=== PATIENT | female | born 1940 | race Caucasian/White ===

== ENCOUNTER 2021-12-26 10:42 | Emergency (ER) | payer MEDICARE, OTHER, SELFPAY ==
[2021-12-26 10:46] VITALS: BP 124/66; PULSE 101; RESP 18; TEMP 36.8; O2SAT 97; BMI 26.3
--- NOTE | 2021-12-26 11:32 | ED_ITS ---
HPI - General Adult General Time Seen by Provider: 11:32 Date Seen: 12/26/21 Chief complaint: Weakness Stated complaint: Post dialysis weakness, knee pain Time Seen by Provider: 12/26/21 11:00 History of Present Illness HPI narrative: Lacey is an 81-year-old female past medical history includes end-stage renal disease on dialysis here in [place] Friday, hypertension, anxiety, SVT presents emerged department via private car with weakness and knee pain. Patient states that she received her dialysis today, he ended up finishing the run and she felt on well after they were finished, she feels lightheaded, and wobbly when she walks. Patient has also had bilateral knee pain and has worsened over the last 2-3 weeks, she has had imaging done of this. She takes extra-strength Tylenol for this, she denies any recent falls or injuries. She says that sometimes she gets dialysis may have to finish early since she does not feel well. This occurred Friday with a finished 20 minutes early, they ended up finishing today though. She denies any worsening chest pain or shortness of breath, she denies any palpitations, cough, orthopnea, lower extremity edema. She has been making urine, she denies any dysuria, amando turia or increased urinary frequency. Patient denies any dizziness but has lightheadedness from time to time, she has been eating and drinking normally, she drinks 4200 mils of water daily. She states she has no history of CAD or stroke. She denies any headache, nausea or vomiting. She denies any diarrhea or abdominal pain. Related Data Home Medications Medication Instructions Recorded Confirmed alprazolam 0.25 mg tablet mg 12/26/21 atorvastatin 40 mg tablet mg 12/26/21 furosemide 40 mg tablet mg 12/26/21 metoprolol tartrate 25 mg tablet mg 12/26/21 sevelamer carbonate 800 mg tablet mg 12/26/21 Previous Rx's Medication Instructions Recorded cefdinir 300 mg capsule 300 mg PO .Q48 #7 caps 12/26/21 Allergies Allergy/AdvReac Type Severity Reaction Status Date / Time No Known Drug Allergies Allergy Verified 12/26/21 10:51 Review of Systems Status of ROS: Reports: 10 or more systems reviewed and unremarkable except as noted in History and [facility] Social History Smoking Status: Never smoker Do you use any of these nicotine containing products: None Second hand tobacco smoke exposure: No How often do you have a drink containing alcohol: never How often do you have six or more drinks on one occasion: Never AUDIT-C Alcohol total score: 0 Non-prescribed substance use: denies use service: No Exam Narrative: Exam Narrative: General: NAD, non toxic in appearance. HEENT: Tympanic membranes within normal limits bilaterally, pupils equal round reactive to light Oropharynx is slightly dry Neck: Supple full range of motion, no JVD Lungs: Clear to auscultation bilaterally Heart: Normal sinus rhythm S1-S2 Abdomen: Soft nontender, bowel sounds present Muscle skeletal: She has full range of motion on extension and flexion of bilateral lower knees, there is no effusion or swelling, no redness Valgus and varus comparable bilaterally Neuro: Gait within normal limits, cranial nerves 2-12 grossly intact, alert awake and oriented x3 Const: Vital Signs, click to edit/add: Vital Signs - 24 hr 12/26/21 10:46 12/26/21 13:03 Temperature 98.3 F Pulse Rate [Right Pulse Oximeter] 101 H 93 Respiratory Rate 18 16 Blood Pressure [Ri ght Upper Arm] 124/66 166/74 H Pulse Oximetry 97 99 Oxygen Delivery Me thod Room Air Course Course Hospital Course: 11:15 AM: patient examined, vitals are stable. Workup will include IV peripheral, will obtain orthostatics, labs including CBC, CMP, magnesium, urinalysis and EKG. No further imaging in regards to her bilateral knees. Plan to hydrate with 250 mL bolus of normal saline, will have her ambulate. Patient was in agreement. Differential diagnosis includes cardiac arrhythmia, CVA, metabolic abnormality, kidney failure, urinary tract infection, sepsis, COVID, pneumonia, depression, anxiety as well as other etiologies. Reevaluation(s) Reevaluation #1: Patient was updated on her labs, EKG, urinalysis and imaging results. EKG did show a normal sinus rhythm, bpm 94, moderate voltage criteria for LVH, unchanged from previous. No acute ST changes. Per ED provider. CT head without IV contrast did not show any intracranial abnormality. Metabolic panel showed no changes with her electrolytes, she did have creatinine of 4.7 secondary to her ESRD. CBC did not show any leukocytosis, mildly elevated neutrophil count and percentage. Urinalysis did have many bacteria, wbc 5-10, 1+ leukocyte esterase, urine culture obtained, she was given 1 gram ceftriaxone. Based on her recent mental status changes, will be able to obtain a MR brain w/o to rule out any cva. If normal then consider discharge home. Time: 15:12 Reevaluation #2: patient update on her MR Brain results: IMPRESSION: 1. No evidence of acute ischemic infarction intracranial hemorrhage or mass. 2. Several small chronic cerebellar infarcts and chronic small vessel ischemic changes in cerebral white matter and trevor have progressed slightly since the prior MRI scan. Dictated by Dorian Miller MD @ 12/26/2021 3:27:56 PM Plan at this time would be to discharge, patient is doing well, prescription for Omnicef to be given every 48 hours, and on days of dialysis to take after the run, total of 7 tablets. Call was made to Daughter in Law Viviana, she was updated on her workup and plan, she will reach out to her [id number] tomorrow. Patient should follow up with primary care provider over the next 7- 10 days as needed, reasons to return given. All questions answered. Vital Signs Vital signs: Initial Vital Signs Temperature 98.3 F 12/26/21 10:46 Temperature Source Temporal Artery Scan 12/26/21 10:46 Pulse Rate 101 H 12/26/21 10:46 Pulse Rhythm 12/26/21 10:46 Respiratory Rate 18 12/26/21 10:46 Blood Pressure 124/66 12/26/21 10:46 Blood Pressure Mean 85 12/26/21 10:46 Blood Pressure Position Sitting 12/26/21 10:46 Pulse Oximetry 97 12/26/21 10:46 Oxygen Delivery Method 12/26/21 10:46 Vital Signs Temperature 98.3 F 12/26/21 10:46 Pulse Rate 101 H 12/26/21 10:46 Respiratory Rate 18 12/26/21 10:46 Blood Pressure 124/66 12/26/21 10:46 Pulse Oximetry 97 12/26/21 10:46 Oxygen Delivery Method 12/26/21 10:46 Temperature 98.3 F 12/26/21 10:46 Pulse Rate 93 12/26/21 13:03 Respiratory Rate 16 12/26/21 13:03 Blood Pressure 166/74 H 12/26/21 13:03 Pulse Oximetry 99 12/26/21 13:03 Oxygen Delivery Method 12/26/21 10:46 Medical Decision Making Lab Data Labs: Lab Results 12/26/21 12/26/21 12/26/21 Range/Units 11:30 11:55 11:55 WBC 8.54 (4.50-11.00) K/uL RBC 3.43 L (4.00-5.20) m/uL Hgb 11.4 L (12.0-16.0) gm/dL Hct 35.3 (33.0-51.0) % MCV 103 H (80-100) fL MCH 33 (26-34) pg MCHC 32 (32-36) gm/dL RDW Coeff of Thomas 14.2 (11.5-15.5) % Plt Count 191 (140-440) K/uL Neut % (Auto) 82.8 H (42.0-72.0) % Lymph % (Auto) 6.0 L (20-44) % [place] % (Auto) 7.8 (0.0-11.0) % Eos % (Auto) 2.1 (0.0-7.0) % Baso % (Auto) 0.7 (0.0-3.0) % Neut # (Auto) 7.10 H (1.7-7.0) K/uL Lymph # (Auto) 0.50 L (0.90-2.90) K/uL [place] # (Auto) 0.70 (0.00-0.90) K/UL Eos # (Auto) 0.18 (0.00-0.50) K/uL Baso # (Auto) 0.06 (0.00-0.30) K/uL Abs Immat Gran (auto) 0.05 (0.00-0.30) K/uL Sodium 137 (135-149) mmol/L Potassium 4.6 (3.6-5.1) mmol/L Chloride 96 (96-114) mmol/L Carbon Dioxide 28 (20-32) mmol/L BUN 29 (7-30) mg/dL Creatinine 4.7 H (0.5-1.5) mg/dL Estimated Creat Clear 9.28 Estimated GFR 9 ml/min Glucose 99 (60-115) mg/dL Calcium 9.7 (8.4-10.6) mg/dL Magnesium 1.6 (1.5-2.6) mg/dL Total Bilirubin 0.4 (0.1-1.5) mg/dL AST 25 (12-35) U/L ALT 19 (4-35) U/L Alkaline Phosphatase 77 (40-150) U/L Total Protein 7.9 (6.0-8.3) g/dL Albumin 4.7 (3.3-5.0) g/dL Urine Color Yellow (Yellow) Urine Appearance Clear (Clear) Urine pH 7.5 (5.0-8.5) Ur Specific [place] 1.020 (1.000-1.030) Urine Protein 3+ A (Negative) Urine Glucose (UA) Negative (Negative) Urine Ketones Negative (Negative) Urine Blood Trace-lysed A (Negative) Urine Nitrite Negative (Negative) Urine Bilirubin Negative (Negative) Urine Urobilinogen 0.2 (0.2-1.0) Ur Leukocyte Esterase 1+ A (Negative) Urine RBC 0-2 (0-2) Urine WBC 5-10 A (0-5) Ur Squamous Epith Cells Many A (None-Few) Amorphous Sediment Few A (None) Urine Bacteria Many A (None) Discharge Plan Discharge Clinical Impression: Urinary tract infection, Generalized weakness, ESRD on dialysis Patient Disposition: Home, Self-Care Instructions: Weakness (ED), Urinary Tract Infection in Older Adults (ED) Additional Instructions: To take Omnicef 300 mg every other day, but on days with dialysis take the Omnicef 300 mg after the run, take a total of 7 tablets. Follow up with primary care provider in the next 7-10 days as needed. Return if worsening symptoms. Activity Level: Activity as Tolerated Prescriptions: New cefdinir 300 mg capsule 300 mg PO .Q48 Qty: 7 0RF No Action furosemide 40 mg tablet atorvastatin 40 mg tablet alprazolam 0.25 mg tablet metoprolol tartrate 25 mg tablet sevelamer carbonate 800 mg tablet Stand Alone Forms: MyHealth Info Instructions
--- NOTE | 2021-12-26 11:43 | CRLHL7_ITS ---
For Patients: As a result of the Cures Act, medical imaging exams and procedure reports are released immediately into your electronic medical record. You may view this report before your referring provider. If you have questions, please contact your health care provider. INDICATION: CVA? TECHNIQUE: Head CT without contrast. COMPARISON: None. FINDINGS: CSF spaces: Within normal limits for age. Brain parenchyma and extra-axial spaces: There are nonspecific low attenuation white matter changes consistent with chronic microvascular disease. No sign of mass, hemorrhage, or midline shift. Calcification in the intracranial bilateral carotid arteries. Skull base and calvarium: Polyp or mucous retention cyst in the left maxillary sinus. The visualized paranasal sinuses and mastoid air cells are otherwise clear with no acute or significant findings. The visualized orbits are grossly unremarkable. No skull fractures. IMPRESSION: 1. No intracranial hemorrhage. 2. No evidence of other acute intracranial abnormality. Acute ischemic stroke cannot be excluded on noncontrast head CT. Please note that all CT scans at this facility use dose modulation, iterative reconstruction, and/or weight-based dosing when appropriate to reduce radiation dose to as low as reasonably achievable. Dictated by Wilfredo Maher MD @ 12/26/2021 12:13:50 PM (Electronically Signed)
[2021-12-26 11:49] LABS: Appearance Urine Clear (Clear); Bilirubin Urine Negative (Negative); Blood Urine Trace-lysed (Negative); Color Urine Yellow (Yellow); Glucose Urine Negative (Negative); Ketones Urine Negative (Negative); Leukocyte Esterase Urine 1+ (Negative); Nitrite Urine Negative (Negative); Protein Urine 3+ (Negative); Urobilinogen Urine 0.2 (0.2-1.0); pH Urine 7.5 (5.0-8.5)
[2021-12-26 12:03] LABS: Basophils Absolute Auto 0.06 K/uL (0.00-0.30); Basophils Percent Auto 0.7 % (0.0-3.0); Eosinophils Absolute Auto 0.18 K/uL (0.00-0.50); Eosinophils Percent Auto 2.1 % (0.0-7.0); Hematocrit 35.3 % (33.0-51.0); Hemoglobin* 11.4 gm/dL (12.0-16.0); Immature Granulocytes Abs Auto 0.05 K/uL (0.00-0.30); Mean Corpuscular HGB Conc 32 gm/dL (32-36); Mean Corpuscular Hemoglobin 33 pg (26-34); Mean Corpuscular Volume 103 fL (80-100); Monocytes Percent Auto 7.8 % (0.0-11.0); Neutrophils Percent Auto 82.8 % (42.0-72.0); Platelet Count* 191 K/uL (140-440); RDW Coefficient of Variation % 14.2 % (11.5-15.5); Red Blood Count 3.43 m/uL (4.00-5.20); White Blood Count* 8.54 K/uL (4.50-11.00)
[2021-12-26 12:10] LABS: Slide Review Reflex No
[2021-12-26 12:25] LABS: Albumin* 4.7 g/dL (3.3-5.0); Chloride* 96 mmol/L (96-114); Sodium* 137 mmol/L (135-149)
[2021-12-26 12:26] LABS: Potassium* 4.6 mmol/L (3.6-5.1)
[2021-12-26] MEDS: 0.9 % SODIUM CHLORIDE 250 ml 250 ML IV (12:27)
[2021-12-26 12:28] LABS: Alanine Aminotransferase* 19 U/L (4-35); Alkaline Phosphatase* 77 U/L (40-150); Aspartate Amino Transferase* 25 U/L (12-35); Bilirubin Total* 0.4 mg/dL (0.1-1.5); Blood Urea Nitrogen* 29 mg/dL (7-30); Carbon Dioxide* 28 mmol/L (20-32); Creatinine* 4.7 mg/dL (0.5-1.5); Est. Creatinine Clearance* 9.28; Estimated Glomerular Filt Rate 9 ml/min; Glucose* 99 mg/dL (60-115); Total Protein* 7.9 g/dL (6.0-8.3)
[2021-12-26 12:29] LABS: Calcium* 9.7 mg/dL (8.4-10.6); Magnesium* 1.6 mg/dL (1.5-2.6)
[2021-12-26 12:36] LABS: Bacteria Urine Many; RBC Urine 0-2 (0-2); Squamous Epithelial Cell Urine Many (None-Few)
[2021-12-26 12:37] LABS: Amorphous Sediment Urine Few
--- NOTE | 2021-12-26 13:00 | ED.NURSE ---
Pt up to the bathroom. Has removed her own IV and removed tele monitor. aware.
[2021-12-26 13:03] VITALS: BP 166/74; PULSE 93; RESP 16; O2SAT 99
--- NOTE | 2021-12-26 13:07 | CRLHL7_ITS ---
For Patients: As a result of the Cures Act, medical imaging exams and procedure reports are released immediately into your electronic medical record. You may view this report before your referring provider. If you have questions, please contact your health care provider. INDICATION: Dizziness. TECHNIQUE: Sagittal T1 axial FLAIR T2 and diffusion weighted images of the brain. COMPARISON: CT brain performed earlier today. Prior brain MRI dated 09/30/2019. FINDINGS: The ventricles normal in size and configuration. Mild prominence of subarachnoid spaces consistent with age-related volume loss. No evidence of acute ischemic infarction. No areas of diffusion restriction. No evidence of intracranial hemorrhage chronic small vessel ischemic changes within bilateral supratentorial white matter and trevor are again noted. There also chronic infarcts in the right cerebellar hemisphere. Findings have progressed somewhat since the prior scan. Retention cyst in the right maxillary sinus. The orbits, sella turcica and skullbase are otherwise unremarkable. IMPRESSION: 1. No evidence of acute ischemic infarction intracranial hemorrhage or mass. 2. Several small chronic cerebellar infarcts and chronic small vessel ischemic changes in cerebral white matter and trevor have progressed slightly since the prior MRI scan. Dictated by Dorian Miller MD @ 12/26/2021 3:27:56 PM (Electronically Signed)
[2021-12-26] MEDS: cefTRIAXone 1 GM in 0.9 % SODIUM CHLORIDE Mini-bag 100 ML IVPB (14:13)
[2021-12-26 16:53] LABS: SARS PCR* Negative SARS-CoV-2 (Negative)
== END 2021-12-26 16:16 | disposition home or self-care (01) ==
PROVIDERS: Emergency Provider Student in an Organized Health Care Education/Training Program
DX: R53.1 Weakness (principal); N39.0 Urinary tract infection, site not specified; N18.6 End stage renal disease; Z99.2 Dependence on renal dialysis
CPT/HCPCS: 36415; 70450; 70551; 80053; 81003; 81015; 83735; 85025; 87040; 87086; 87635; 93005; 96365; 99283; 99284; 99285; J0696; J7050

== ENCOUNTER 2021-12-27 18:33 | Outpatient (CLI) | payer MEDICARE, OTHER, SELFPAY | END 2021-12-27 18:34 | disposition home or self-care (01) | PROVIDERS: Visit Provider Family Medicine | DX: R42 Dizziness and giddiness (principal); R53.1 Weakness | CPT/HCPCS: A0425; A0427 ==

== ENCOUNTER 2021-12-27 18:54 | Emergency (ER) | payer MEDICARE, OTHER, SELFPAY ==
[2021-12-27] VITALS (15 sets, daily range): BP systolic 104–181; BP diastolic 52–81; PULSE 94–150; RESP 18; TEMP 36.4; O2SAT 90–96; BMI 22.8
--- NOTE | 2021-12-27 | CRLHL7_ITS ---
For Patients: As a result of the Century Cures Act, medical imaging exams and procedure reports are released immediately into your electronic medical record. You may view this report before your referring provider. If you have questions, please contact your health care provider. DATE: 12/27/2021. CLINICAL HISTORY: Acute neurological deficit. TECHNIQUE: Standard helical CT image acquisition through the head and neck was performed after intravenous contrast bolus enhancement. Multiplanar reconstructed images were performed and interpreted. COMPARISON: None available. FINDINGS: The origins of the great vessels from the aortic arch are patent. The origins of the right and left vertebral arteries are patent. The common carotid arteries are patent. No significant luminal stenoses of the proximal internal carotid arteries by NASCET criteria. The more distal cervical segments of the internal carotid arteries are patent. The cervical segments of the vertebral arteries are patent. No intracranial proximal large vessel occlusion or flow-limiting luminal stenosis. No evidence of cerebral aneurysm or findings to suggest an arteriovenous shunting lesion. IMPRESSION: 1. No intracranial proximal large vessel occlusion or flow-limiting luminal stenosis. 2. Patent cervical arterial vasculature without hemodynamically significant luminal stenosis. Please note that all CT scans at this facility use dose modulation, iterative reconstruction, and/or weight-based dosing when appropriate to reduce radiation dose to as low as reasonably achievable. Dictated by Demetris Alonso MD @ 12/28/2021 9:40:48 AM (Electronically Signed)
--- NOTE | 2021-12-27 | CRLHL7_ITS ---
For Patients: As a result of the Century Cures Act, medical imaging exams and procedure reports are released immediately into your electronic medical record. You may view this report before your referring provider. If you have questions, please contact your health care provider. INDICATION: Stroke. TECHNIQUE: Head CT without contrast. COMPARISON: December 26, 2021. FINDINGS: CSF spaces: Within normal limits for age. Brain parenchyma and extra-axial spaces: There are nonspecific low attenuation white matter changes consistent with chronic microvascular disease. No sign of mass, hemorrhage, or midline shift. Skull base and calvarium: The visualized paranasal sinuses and mastoid air cells demonstrate no acute or significant findings. The visualized orbits are grossly unremarkable. No skull fractures. IMPRESSION: No acute findings and no significant changes from the prior exam. No sign of acute ischemia or intracranial hemorrhage. Please note that all CT scans at this facility use dose modulation, iterative reconstruction, and/or weight-based dosing when appropriate to reduce radiation dose to as low as reasonably achievable. Dictated by Flash Magaña MD @ 12/27/2021 7:28:58 PM (Electronically Signed)
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
[2021-12-27] MEDS: 0.9 % SODIUM CHLORIDE 250 ml 250 ML IV (19:15)
[2021-12-27 19:25] LABS: Basophils Absolute Auto 0.05 K/uL (0.00-0.30); Basophils Percent Auto 0.6 % (0.0-3.0); Eosinophils Absolute Auto 0.16 K/uL (0.00-0.50); Eosinophils Percent Auto 1.9 % (0.0-7.0); Hematocrit 33.5 % (33.0-51.0); Hemoglobin* 10.7 gm/dL (12.0-16.0); Immature Granulocytes Abs Auto 0.05 K/uL (0.00-0.30); Mean Corpuscular HGB Conc 32 gm/dL (32-36); Mean Corpuscular Hemoglobin 33 pg (26-34); Mean Corpuscular Volume 104 fL (80-100); Monocytes Percent Auto 9.4 % (0.0-11.0); Neutrophils Percent Auto 75.5 % (42.0-72.0); Platelet Count* 228 K/uL (140-440); RDW Coefficient of Variation % 14.8 % (11.5-15.5); Red Blood Count 3.23 m/uL (4.00-5.20); White Blood Count* 8.51 K/uL (4.50-11.00)
[2021-12-27 19:26] LABS: Slide Review Reflex No
[2021-12-27] MEDS: ADENOSINE 6 MG/2ML INJ IVP (19:32)
[2021-12-27 19:38] LABS: Chloride* 95 mmol/L (96-114); Potassium* 5.3 mmol/L (3.6-5.1); Sodium* 137 mmol/L (135-149)
[2021-12-27 19:40] LABS: INR 1.05 (0.91-1.10); Prothrombin Time 14.1 Seconds
[2021-12-27 19:41] LABS: Blood Urea Nitrogen* 54 mg/dL (7-30); Carbon Dioxide* 23 mmol/L (20-32); Creatinine* 8.1 mg/dL (0.5-1.5); Est. Creatinine Clearance* 4.98; Estimated Glomerular Filt Rate 5 ml/min; Glucose* 161 mg/dL (60-115)
[2021-12-27 19:42] LABS: Calcium* 9.7 mg/dL (8.4-10.6)
--- NOTE | 2021-12-27 19:43 | CRLHL7_ITS ---
For Patients: As a result of the Century Cures Act, medical imaging exams and procedure reports are released immediately into your electronic medical record. You may view this report before your referring provider. If you have questions, please contact your health care provider. INDICATION: Supraventricular tachycardia. Shortness of breath. TECHNIQUE: Chest 1 views. COMPARISON: None. FINDINGS: Cardiovascular and mediastinum: Heart size and vasculature are normal in caliber and appearance. Lungs and pleural spaces: Lungs are clear. No sign of infiltrate or mass. No sign of pleural effusion. No pneumothorax. Bones and soft tissues: No significant findings. IMPRESSION: No acute or significant findings. Dictated by Flash Magaña MD @ 12/27/2021 8:11:15 PM (Electronically Signed)
[2021-12-27] MEDS: ONDANSETRON 2 MG/ML inj 4 MG IVP (22:27)
[2021-12-28] VITALS: PULSE 81; RESP 16; O2SAT 95
--- NOTE | 2021-12-28 00:09 | ED.NURSE ---
pt moved to room 5.
[2021-12-28 01:00] VITALS: BP 166/68; PULSE 84; RESP 16; O2SAT 95
[2021-12-28 02:00] VITALS: BP 172/67; PULSE 82; RESP 16; O2SAT 96
[2021-12-28] MEDS: METOPROLOL TARTRATE 25 MG TABLET PO (02:00)
[2021-12-28 02:29] LABS: Magnesium* 1.9 mg/dL (1.5-2.6)
[2021-12-28 03:00] VITALS: BP 153/76; PULSE 76; RESP 16; O2SAT 95
[2021-12-28 04:00] VITALS: BP 151/72; PULSE 77; RESP 16; O2SAT 95
[2021-12-28 05:00] VITALS: BP 150/68; PULSE 74; RESP 16; O2SAT 95
--- NOTE | 2021-12-28 05:00 | ED.NURSE ---
At bedside with MD Martin for education on importance of returning to ED after dialysis.
== END 2021-12-28 05:46 | disposition home or self-care (01) ==
PROVIDERS: Student in an Organized Health Care Education/Training Program; Emergency Provider Family Medicine
DX: R47.89 Other speech disturbances (principal); N18.6 End stage renal disease; Z99.2 Dependence on renal dialysis
CPT/HCPCS: 36415; 70450; 70496; 70498; 71045; 80048; 83735; 85025; 85610; 87635; 93005; 96374; 96375; 99285; A9270; J0153; J2405; J7050; Q9967

== ENCOUNTER 2021-12-28 11:07 | Observation (INO) | payer MEDICARE, OTHER, SELFPAY ==
[2021-12-28] VITALS (8 sets, daily range): BP systolic 124–148; BP diastolic 64–89; PULSE 80–95; RESP 16–20; TEMP 36.3–37.2; O2SAT 93–99; BMI 23.1
--- NOTE | 2021-12-28 11:42 | ED.GENADULT ---
HPI - General Adult General Time Seen by Provider: 11:42 Date Seen: 12/28/21 Chief complaint: Neuro Symptoms/Altered Deficit Stated complaint: Needs tests Time Seen by Provider: 12/28/21 11:13 Source: patient, RN notes reviewed and old records reviewed Mode of arrival: ambulatory Limitations: no limitations History of Present Illness HPI narrative: Patient returns after dialysis for further workup and hospitalization for TIA. This patient has a complex history including end-stage renal disease on dialysis with underlying history of glomerulonephritis. She has been evaluated a few times in our ER now. Her most recent visit was yesterday on 12/27/2021. She ended up in our hospital overnight as there was no placement for her. She has had a head CT and a CTA of. She has had an MRI reportedly that was negative. He ended up in our ER overnight, went to dialysis and has returned. Neurology was consulted via phone overnight and therefore informed of the negative CT/MRI on December [address] CTA on December 27. She also had SVT on December 27 which resolved with adenosine. She did have a witnessed 30-45 second episode of difficulty with speech and word-finding here in the ER overnight. Her initial NIH was 1 in subsequently resolved back to 0. Neurology suggested TIA workup, with inability to transfer to [facility] dialysis she was held overnight in the ER and discharge to dialysis this morning. She returns for further evaluation. She was given an aspirin 81 mg a overnight. She has had no episodes of neurologic change since discharge. No speech difficulties. Dialysis was uneventful, she is feeling at baseline. She does states she feels a bit wobbly. Her last COVID test was on December 26, will repeat today. There was a question of a UTI on the , cefdinir was started, urine culture is growing a contaminant. She had been advised to stop the cefdinir overnight. Nursing staff reported to me that there have been a few things with her behavior that they are wondering if there is some behavior issues or possibly dementia. She stated that she urinated and that her urine never looks yellow. There was absolutely no change in color in the urine in the toilet. Overnight she was also noted to be scrolling on her phone but she had upside down. She also argued with nursing staff for quite some time on her admission today that her weight was 168 kilos. Nursing staff tried to explain to her that this would be lb for her. She argued for quite a bit until she finally understood that indeed the 168 is lb. Related Data Home Medications Medication Instructions Recorded Confirmed alprazolam 0.25 mg tablet mg 12/26/21 atorvastatin 40 mg tablet mg 12/26/21 furosemide 40 mg tablet mg 12/26/21 metoprolol tartrate 25 mg tablet mg 12/26/21 sevelamer carbonate 800 mg tablet mg 12/26/21 Previous Rx's Medication Instructions Recorded cefdinir 300 mg capsule 300 mg PO .Q48 #7 caps 12/26/21 Allergies Allergy/AdvReac Type Severity Reaction Status Date / Time No Known Drug Allergies Allergy Verified 12/26/21 10:51 Review of Systems Status of ROS: Reports: 10 or more systems reviewed and unremarkable except as noted in History and below [facility] Social History Smoking Status: Never smoker Do you use any of these nicotine containing products: None Second hand tobacco smoke exposure: No How often do you have a drink containing alcohol: never How often do you have six or more drinks on one occasion: Never AUDIT-C Alcohol total score: 0 Non-prescribed substance use: denies use service: No Exam Const: Vital Signs, click to edit/add: Vital Signs - 24 hr 12/28/21 11:23 12/28/21 12:31 12/28/21 13:01 Temperature 99.0 F Pulse Rate 93 Pulse Rate [Right Pulse Oximeter] 91 Respiratory Rate 18 Blood Pressure 124/74 134/74 Blood Pressure [Ri ght Upper Arm] 131/64 Pulse Oximetry 96 94 Oxygen Delivery Me thod Room Air Documenting provider has reviewed patient's vital signs: yes Common normals: no apparent distress, average body habitus, oriented x3, no limitations, healthy appearing and alert General appearance: cooperative and comfortable HENMT: Common normals: normocephalic, head/scalp atraumatic, hearing grossly normal bilaterally, external ears normal, external nose normal, nasal mucous membranes and turbinates normal, moist oral mucous membranes, oropharynx normal, dentition normal and gingiva normal Head and scalp: normocephalic and atraumatic Nose: external nose normal and nasal mucous membranes and turbinates normal External ear: external ears normal Eye: Common normals: PERRL, EOMs intact bilaterally, conjunctivae normal and no scleral icterus Conjunctiva: conjunctiva(e) normal Pupil: PERRL Neck & C-Spine: Common normals: full ROM, no lymphadenopathy, supple, no meningeal signs, no JVD and thyroid normal Thyroid: thyroid normal Resp: Common normals: normal respiratory effort, no retractions, no use of accessory muscles and clear to auscultation bilaterally Auscultation: clear to auscultation bilaterally Cardio: Common normals: no JVD, regular rate, regular rhythm, S1 normal heart sound, S2 normal heart sound, no gallops, no clicks, no murmurs, no rub and peripheral pulses 2+ throughout Rate: regular rate Rhythm: regular rhythm Heart sounds: S1 normal and S2 normal Peripheral pulses: pulses 2+ throughout GI: Common normals: Normal to inspection, nondistended, normoactive bowel sounds present, soft to palpation, non-tender, no hepatosplenomegaly, no masses and no bruits Palpation: soft and no hepatosplenomegaly Neuro: Bob Coma Scale: document GCS findings Bob coma scale eye opening: Spontaneous (4) Bob coma scale verbal response: Orientated (5) [place] coma scale motor response: Obey commands (6) [place] coma scale total score: 15 Common normals: oriented x3, CN's II-XII intact bilaterally, moves all extremities, no focal motor deficits and no sensory deficits noted Sensorium/orientation: alert Meningeal signs: no meningeal signs Speech: speech normal Course Course Hospital Course: We will place her on cardiac monitoring. Will update labs including COVID screening. I have talked to our hospitalist already briefly regarding this patient. When he is done doing the discharge he will come down to see me and discuss this patient further. She will not require dialysis until Friday. I do wonder if she needs some cognitive testing. It certainly is possible that the have been TIAs and she is high risk. I will have nursing staff see if there are any possible med surg beds where there is dialysis. She does not need repeat neuro imaging at this time. Vital Signs Vital signs: Initial Vital Signs Temperature 99.0 F 12/28/21 11:23 Temperature Source Temporal Artery Scan 12/28/21 11:23 Pulse Rate 91 12/28/21 11:23 Respiratory Rate 18 12/28/21 11:23 Blood Pressure 131/64 12/28/21 11:23 Blood Pressure Mean 86 12/28/21 11:23 Blood Pressure Position Supine 12/28/21 11:23 Pulse Oximetry 96 12/28/21 11:23 Oxygen Delivery Method 12/28/21 11:23 Vital Signs Temperature 99.0 F 12/28/21 11:23 Pulse Rate 91 12/28/21 11:23 Respiratory Rate 18 12/28/21 11:23 Blood Pressure 131/64 12/28/21 11:23 Pulse Oximetry 96 12/28/21 11:23 Oxygen Delivery Method 12/28/21 11:23 Temperature 99.0 F 12/28/21 11:23 Pulse Rate 93 12/28/21 12:31 Respiratory Rate 18 12/28/21 11:23 Blood Pressure 134/74 12/28/21 13:01 Pulse Oximetry 94 12/28/21 12:31 Oxygen Delivery Method 12/28/21 11:23 Medical Decision Making Lab Data Lab results reviewed: Yes I reviewed the patient's lab results Labs: Lab Results 12/28/21 12/28/21 12/28/21 Range/Units 11:43 12:05 12:05 WBC (4.50-11.00) K/uL RBC (4.00-5.20) m/uL Hgb (12.0-16.0) gm/dL Hct (33.0-51.0) % MCV (80-100) fL MCH (26-34) pg MCHC (32-36) gm/dL RDW Coeff of Thomas (11.5-15.5) % Plt Count (140-440) K/uL Neut % (Auto) (42.0-72.0) % Lymph % (Auto) (20-44) % [place] % (Auto) (0.0-11.0) % Eos % (Auto) (0.0-7.0) % Baso % (Auto) (0.0-3.0) % Neut # (Auto) (1.7-7.0) K/uL Lymph # (Auto) (0.90-2.90) K/uL [place] # (Auto) (0.00-0.90) K/UL Eos # (Auto) (0.00-0.50) K/uL Baso # (Auto) (0.00-0.30) K/uL Abs Immat Gran (auto) (0.00-0.30) K/uL Sodium 136 (135-149) mmol/L Potassium 4.2 (3.6-5.1) mmol/L Chloride 95 L (96-114) mmol/L Carbon Dioxide 29 (20-32) mmol/L BUN 24 (7-30) mg/dL Creatinine 4.3 H (0.5-1.5) mg/dL Estimated Creat Clear 10.15 Estimated GFR 10 ml/min Glucose 108 (60-115) mg/dL Calcium 8.9 (8.4-10.6) mg/dL Total Bilirubin 0.4 (0.1-1.5) mg/dL AST 29 (12-35) U/L ALT 18 (4-35) U/L Alkaline Phosphatase 70 (40-150) U/L Total Protein 7.5 (6.0-8.3) g/dL Albumin 4.5 (3.3-5.0) g/dL TSH 1.000 (0.270-4.200) uIU/mL SARS-CoV-2 (PCR) Negative SARS-CoV-2 (Negative) 12/28/21 Range/Units 12:06 WBC 7.98 (4.50-11.00) K/uL RBC 3.12 L (4.00-5.20) m/uL Hgb 10.4 L (12.0-16.0) gm/dL Hct 32.3 L (33.0-51.0) % MCV 104 H (80-100) fL MCH 33 (26-34) pg MCHC 32 (32-36) gm/dL RDW Coeff of Thomas 14.6 (11.5-15.5) % Plt Count 173 (140-440) K/uL Neut % (Auto) 78.9 H (42.0-72.0) % Lymph % (Auto) 9.4 L (20-44) % [place] % (Auto) 8.6 (0.0-11.0) % Eos % (Auto) 1.5 (0.0-7.0) % Baso % (Auto) 0.5 (0.0-3.0) % Neut # (Auto) 6.30 (1.7-7.0) K/uL Lymph # (Auto) 0.80 L (0.90-2.90) K/uL [place] # (Auto) 0.70 (0.00-0.90) K/UL Eos # (Auto) 0.12 (0.00-0.50) K/uL Baso # (Auto) 0.04 (0.00-0.30) K/uL Abs Immat Gran (auto) 0.09 (0.00-0.30) K/uL Sodium (135-149) mmol/L Potassium (3.6-5.1) mmol/L Chloride (96-114) mmol/L Carbon Dioxide (20-32) mmol/L BUN (7-30) mg/dL Creatinine (0.5-1.5) mg/dL Estimated Creat Clear Estimated GFR ml/min Glucose (60-115) mg/dL Calcium (8.4-10.6) mg/dL Total Bilirubin (0.1-1.5) mg/dL AST (12-35) U/L ALT (4-35) U/L Alkaline Phosphatase (40-150) U/L Total Protein (6.0-8.3) g/dL Albumin (3.3-5.0) g/dL TSH (0.270-4.200) uIU/mL SARS-CoV-2 (PCR) (Negative) Critical Care Time Critical Care Time Critical Care Time: No Discharge Plan Discharge Clinical Impression: Speech abnormality, End stage renal disease on dialysis
[2021-12-28 12:12] LABS: Basophils Absolute Auto 0.04 K/uL (0.00-0.30); Basophils Percent Auto 0.5 % (0.0-3.0); Eosinophils Absolute Auto 0.12 K/uL (0.00-0.50); Eosinophils Percent Auto 1.5 % (0.0-7.0); Hematocrit 32.3 % (33.0-51.0); Hemoglobin* 10.4 gm/dL (12.0-16.0); Immature Granulocytes Abs Auto 0.09 K/uL (0.00-0.30); Lymphocytes Percent Auto 9.4 % (20-44); Mean Corpuscular HGB Conc 32 gm/dL (32-36); Mean Corpuscular Hemoglobin 33 pg (26-34); Mean Corpuscular Volume 104 fL (80-100); Monocytes Percent Auto 8.6 % (0.0-11.0); Neutrophils Percent Auto 78.9 % (42.0-72.0); Platelet Count* 173 K/uL (140-440); RDW Coefficient of Variation % 14.6 % (11.5-15.5); Red Blood Count 3.12 m/uL (4.00-5.20); White Blood Count* 7.98 K/uL (4.50-11.00)
[2021-12-28 12:19] LABS: Slide Review Reflex No
[2021-12-28 12:25] LABS: Albumin* 4.5 g/dL (3.3-5.0); Chloride* 95 mmol/L (96-114)
[2021-12-28 12:26] LABS: Potassium* 4.2 mmol/L (3.6-5.1); Sodium* 136 mmol/L (135-149)
[2021-12-28 12:28] LABS: Alkaline Phosphatase* 70 U/L (40-150); Aspartate Amino Transferase* 29 U/L (12-35); Bilirubin Total* 0.4 mg/dL (0.1-1.5); Blood Urea Nitrogen* 24 mg/dL (7-30); Carbon Dioxide* 29 mmol/L (20-32); Creatinine* 4.3 mg/dL (0.5-1.5); Est. Creatinine Clearance* 10.15; Estimated Glomerular Filt Rate 10 ml/min; Total Protein* 7.5 g/dL (6.0-8.3)
[2021-12-28 12:29] LABS: Alanine Aminotransferase* 18 U/L (4-35); Calcium* 8.9 mg/dL (8.4-10.6); Glucose* 108 mg/dL (60-115)
[2021-12-28 13:07] LABS: SARS PCR* Negative SARS-CoV-2 (Negative)
--- NOTE | 2021-12-28 13:08 | ED.NURSE ---
Report given to ARNOLD Velazquez. Pt will go to Rm 256 in 10-15 min per M/S request. VSS at this time.
--- NOTE | 2021-12-28 14:36 | PC.NURSE ---
End of Shift/admission note: Patient arrived to the floor around 1330. When she arrived she was met by the hydroelectric plant technician to do and echo cardiogram so did not start her admission process right away. Patient does appear alert and orientated. But does struggle at times to find her words. Will continue to monitor until next shift.
--- NOTE | 2021-12-28 15:53 | P.IMHP_ITS ---
Hospitalist- H&P: ALIA History of Present Illness Date Seen: 12/28/21 Chief complaint: Needs tests Narrative: Lacey Jackson is a 81 year old female who presents with a 2 day history of neurologic symptoms. 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 She is on dialysis for this. Two days ago she had dialysis and did not feel right afterwards. She was referred to the emergency department because it was suspected she had a urinary tract infection. She did not have any urinary symptoms or fever or back pain. She reported no other symptoms of illness other than just not feeling well. In the emergency room she had evaluation including an MRI of the brain which showed no acute abnormality but small-vessel ischemic changes and prior cerebellar strokes. Urinalysis was obtained and she was started on cefdinir. She did not actually start the cefd inir. She went home and and continued to have a sense of malaise. She then the next day developed a sense of dizziness. She describes the dizziness as both unsteadiness on her feet as well as some lightheadedness when she stood up. She did not pass out or fall down. She has been able to eat and drink without nausea and vomiting she has not had any diarrhea she has not any urinary symptoms. She has a chronic cough which has not changed she has not any shortness of breath or respiratory illness symptoms. She was evaluated in the emergency department and underwent head CT was CTA. This showed no acute abnormality and no significant extra cranial or intracranial stenosis. She continues to report a sense of imbalance/dizziness. There was also some question of whether she is having some word-finding difficulties. This was observed in the emergency department. She is also having some trouble describing recent events to me. She is occasionally confused about her medical history and recent events and dates of events. Review of Systems Narrative: She reports otherwise feeling well. She did have a headache on Friday but that has resolved. She has not had any head trauma. No fever. No focal weakness, numbness or tingling. No visual disturbance. No sore throat. No new cough or cold. No chest pain. No abdominal pain, nausea, vomiting. She has been eating normally. No diarrhea or. She does have chronic constipation for which she uses MiraLax as needed. No blood in her stool or melena. No urinary frequency urgency dysuria. No flank pain. No extremity edema. No bleeding or clotting problems. She is wearing a cam walker type boot on her right leg because she tells me she is having some right heel pain. PFSH PFSH Family History Mother CHF (congestive heart failure) Father Pancreatic cancer Social History Highest level of school completed/degree received: Bachelor's degree Smoking Status: Never smoker Do you use any of these nicotine containing products: None Second hand tobacco smoke exposure: No How often do you have a drink containing alcohol: never How often do you have six or more drinks on one occasion: Never AUDIT-C Alcohol total score: 0 Non-prescribed substance use: denies use Caffeine: No service: No Meds Home Medications and Allergies Home Medications Medication Instructions Recorded Confirmed Type alprazolam 0.25 mg tablet 0.25 mg PO DAILY PRN 12/26/21 12/28/21 History atorvastatin 40 mg tablet 40 mg PO .At bedtime 12/26/21 12/28/21 History furosemide 40 mg tablet 40 mg PO DAILY 12/26/21 12/28/21 History metoprolol tartrate 25 mg tablet 25 mg PO BID 12/26/21 12/28/21 History sevelamer carbonate 800 mg tablet 3,200 mg PO TIDWM 12/26/21 12/28/21 History venlafaxine 150 mg 150 mg PO DAILY 12/28/21 12/28/21 History capsule,extended release 24 hr vitamin B comp no.3-folic acid 1 1 tab PO DAILY 12/28/21 12/28/21 History mg-vit C 60 mg-biotin 300 mcg tablet ([employer]) Allergies Allergy/AdvReac Type Severity Reaction Status Date / Time No Known Drug Allergies Allergy Verified 12/26/21 10:51 Exam Narrative: Exam Narrative: She is alert and appears in no distress. Speech is normal. She speech is fluent. She does struggle to recall significant amounts of recent events. She is initially disoriented to day but then is able to self correct. She is unable to recall her medications and unable to find her medication list in her phone. She has no facial asymmetry. Eyes are normal. Extraocular movements are full. Visual flanagan are intact. Pupils are equal round reactive to light. Oropharynx is normal. Tongue is midline. She has intact sensation in her face. Neck is supple without mass or adenopathy. Respirations are clear to auscultation. Cardiovascular: S1, S2, regular rate and rhythm. No murmur gallop or rub. Abdomen: Bowel sounds active. Abdomen is soft without tenderness or mass. External genitalia normal. Extremities are normal. Boot is removed from her right extremity to reveal a normal appearing foot. She does have mild tenderness with palpation over the plantar surface of the heel as well as the area of the insertion of the Achilles on the posterior heel. There is no redness or swelling in this area. She has normal motion in her ankle without significant discomfort. No swelling in her calf. She has intact pedal pulses. No edema. She moves all 4 extremities equally with equal strength. [id number] is accurate. No tremor. No dysmetria. Const: Vital Signs, click to edit/add: Vital Signs - 24 hr 12/28/21 11:23 12/28/21 12:31 12/28/21 13:01 Temperature 99.0 F Pulse Rate 93 Pulse Rate [Right Pulse Oximeter] 91 Pulse Rate [Right Radial] Respiratory Rate 18 Blood Pressure 124/74 134/74 Blood Pressure [Ri ght Arm] Blood Pressure [Ri ght Upper Arm] 131/64 Pulse Oximetry 96 94 Oxygen Delivery Me thod Room Air 12/28/21 14:04 Temperature 99.0 F Pulse Rate Pulse Rate [Right Pulse Oximeter] Pulse Rate [Right Radial] 86 Respiratory Rate 20 Blood Pressure Blood Pressure [Ri ght Arm] 146/69 H Blood Pressure [Ri ght Upper Arm] Pulse Oximetry 99 Oxygen Delivery Me thod Room Air Documenting provider has reviewed patient's vital signs: yes Hospitalist - H&P: Result Labs Labs: Short CBC 12/28/21 Range/Units 12:06 WBC 7.98 (4.50-11.00) K/uL Hgb 10.4 L (12.0-16.0) gm/dL Hct 32.3 L (33.0-51.0) % Plt Count 173 (140-440) K/uL BMP 12/28/21 12:05 Sodium 136 Potassium 4.2 Chloride 95 L Carbon Dioxide 29 BUN 24 Creatinine 4.3 H Glucose 108 Calcium 8.9 Liver Function 12/28/21 Range/Units 12:05 Total Bilirubin 0.4 (0.1-1.5) mg/dL AST 29 (12-35) U/L ALT 18 (4-35) U/L Alkaline Phosphatase 70 (40-150) U/L Albumin 4.5 (3.3-5.0) g/dL Imaging Echo: Radiologist's impression: Echocardiogram which is relatively normal with preserved ejection fraction of 62%, moderately increased wall thickness. Right ventricle size and function normal. No significant valvular disease. Assessment and Plan Assessment and plan (1) Imbalance: Problem comment: History of old cerebellar infarcts may be contributing Status: Acute Assessment and Plan: Will have PT and OT assess mobility. (2) Cognitive impairment: Problem comment: Baseline uncertain Status: Acute Assessment and Plan: Obtain Dolores. 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 Discussed possible explanations for her symptoms with a relatively normal MRI/CT/CTA of the head and neck. Total time spent today is 75 minutes, 50 minutes in coordination care and discussing ongoing evaluation management of her symptoms
--- NOTE | 2021-12-28 18:54 | PC.NURSE ---
Pt admitted by Caroline Ruiz RN at 1:30 pm. Assumed care of this patient at 1500 while pt was interviewing pt in room 256. Bertha Pharmacist in to reconcile pt's medications. Pt has a restriction on her left arm d/to dialysis fistula. Pt is DNR. She goes to dialysis --. Outpatient observation forms signed, personal belonging list completed and pt health information contacts finished. Pt walks with SBA of one and she utilizes her own straight cane. Tele indicates NSR. Report to oncoming shift RN.
[2021-12-28] MEDS: ACETAMINOPHEN 650 MG TABLET ER 1300 MG PO (21:08)
[2021-12-28] MEDS: METOPROLOL TARTRATE 25 MG TABLET PO (21:09)
[2021-12-28] MEDS: ATORVASTATIN CALCIUM 40 MG TABLET PO (21:09)
[2021-12-29 03:00] VITALS: BP 148/61; PULSE 78; RESP 18; TEMP 36.2; O2SAT 97
--- NOTE | 2021-12-29 06:46 | PC.NURSE ---
[id number]: Patient pleasant and cooperative. Denies pain. Afebrile. Denies N/V. Denies dizziness/lightheadedness. A&Ox3 but mildly forgetful at times. Rested well during noc. A1, cane (from home). Wears boot on RLE for chronic bursitis.
[2021-12-29 07:00] VITALS: PULSE 87
[2021-12-29 09:00] VITALS: BP 153/75; PULSE 87; RESP 16; TEMP 37.2; O2SAT 94
[2021-12-29] MEDS: METOPROLOL TARTRATE 25 MG TABLET PO (09:31)
[2021-12-29] MEDS: CALCIUM CARBONATE 500 MG TABLET 1500 MG PO (09:32)
[2021-12-29] MEDS: FUROSEMIDE 40 MG TABLET PO (09:32)
[2021-12-29] MEDS: ACETAMINOPHEN 650 MG TABLET ER 1300 MG PO (09:32)
[2021-12-29] MEDS: ASPIRIN 81 MG TAB.CHEW PO (09:33)
[2021-12-29] MEDS: VENLAFAXINE ER 75 MG CAPSULE 150 MG PO (09:33)
[2021-12-29] MEDS: calcitrioL 0.25 MCG CAPSULE PO (09:34)
--- NOTE | 2021-12-29 11:10 | P.DS_ITS ---
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 For the 2 days prior to admission she had had fluctuating problems of fatigue malaise weakness as well as concerns about forgetfulness confusion and speech difficulties. She is on dialysis and started getting her symptoms after dialysis on Friday. These persisted and she was admitted after dialysis on Friday. She had had emergency room evaluations on Friday and and Friday for this. No obvious explanation for her symptoms were apparent. She had MRI of her brain which showed old cerebellar strokes and chronic small- vessel ischemic changes. CT of the head and CTA were unremarkable and showed no significant vascular disease in the head or neck. She was ordered to treat a urinary tract infection but never started the antibiotic in the urine culture ended up showing mixed colonies of bacteria. No antibiotics were started or continued. Clinical evaluation during her hospital stay was entirely normal. She had PT and OT evaluations showing no significant new deficits. She was found to have quite good balance but does walk with a cane. Her Hemet score was 28/30. She had no difficulties with word finding or speech fluency during her hospital stay. The cause for her recent symptoms of illness was not certain at the time of discharge Status at Discharge Functional status at discharge: independent ambulation Overall status at discharge: patient is back to baseline Time Spent with Patient Time attestation: Total time spent providing and/or coordinating discharge services: Time spent: Greater than 30 minutes Exam Narrative: Exam Narrative: She is alert and appears in no distress. Speech is normal. Mood and affect are bright. Respirations are unlabored. She is observed to walk without difficulties Const: Vital Signs, click to edit/add: Vital Signs - 24 hr 12/28/21 11:23 12/28/21 12:31 12/28/21 13:01 Temperature 99.0 F Pulse Rate 93 Pulse Rate [Right Pulse Oximeter] 91 Pulse Rate [Right Radial] Respiratory Rate 18 Blood Pressure 124/74 134/74 Blood Pressure [Ri ght Arm] Blood Pressure [Ri ght Upper Arm] 131/64 Pulse Oximetry 96 94 Oxygen Delivery Me thod Room Air 12/28/21 14:04 12/28/21 15:00 12/28/21 16:00 Temperature 99.0 F 98.7 F Pulse Rate 89 Pulse Rate [Right Pulse Oximeter] Pulse Rate [Right Radial] 86 88 Respiratory Rate 20 16 Blood Pressure Blood Pressure [Ri ght Arm] 146/69 H 146/89 H Blood Pressure [Ri ght Upper Arm] Pulse Oximetry 99 99 Oxygen Delivery Me thod Room Air Room Air 12/28/21 19:00 12/28/21 23:00 12/28/21 23:00 Temperature 98.6 F 97.4 F L Pulse Rate 80 Pulse Rate [Right Pulse Oximeter] Pulse Rate [Right Radial] 95 93 Respiratory Rate 18 20 Blood Pressure Blood Pressure [Ri ght Arm] 148/64 H 144/72 H Blood Pressure [Ri ght Upper Arm] Pulse Oximetry 98 93 Oxygen Delivery Me thod Room Air Room Air 12/29/21 03:00 12/29/21 09:00 12/29/21 09:00 Temperature 97.1 F L 98.9 F Pulse Rate Pulse Rate [Right Pulse Oximeter] Pulse Rate [Right Radial] 78 87 87 Respiratory Rate 18 16 16 Blood Pressure Blood Pressure [Ri ght Arm] 148/61 H 153/75 H Blood Pressure [Ri ght Upper Arm] Pulse Oximetry 97 94 Oxygen Delivery Me thod Room Air Room Air 12/29/21 07:00 Temperature Pulse Rate 87 Pulse Rate [Right Pulse Oximeter] Pulse Rate [Right Radial] Respiratory Rate Blood Pressure Blood Pressure [Ri ght Arm] Blood Pressure [Ri ght Upper Arm] Pulse Oximetry Oxygen Delivery Me thod Documenting provider has reviewed patient's vital signs: yes DS: Data Data Completed and Pending Labs on day of discharge: Labs from last 24 hours 12/28/21 12/28/21 12/28/21 12:06 12:05 12:05 WBC 7.98 RBC 3.12 L Hgb 10.4 L Hct 32.3 L MCV 104 H MCH 33 MCHC 32 RDW Coeff of Thomas 14.6 Plt Count 173 Neut % (Auto) 78.9 H Lymph % (Auto) 9.4 L [place] % (Auto) 8.6 Eos % (Auto) 1.5 Baso % (Auto) 0.5 Neut # (Auto) 6.30 Lymph # (Auto) 0.80 L [place] # (Auto) 0.70 Eos # (Auto) 0.12 Baso # (Auto) 0.04 Abs Immat Gran (auto) 0.09 Sodium 136 Potassium 4.2 Chloride 95 L Carbon Dioxide 29 BUN 24 Creatinine 4.3 H Estimated Creat Clear 10.15 Estimated GFR 10 Glucose 108 Calcium 8.9 Total Bilirubin 0.4 AST 29 ALT 18 Alkaline Phosphatase 70 Total Protein 7.5 Albumin 4.5 TSH 1.000 SARS-CoV-2 (PCR) 12/28/21 11:43 WBC RBC Hgb Hct MCV MCH MCHC RDW Coeff of Thomas Plt Count Neut % (Auto) Lymph % (Auto) [place] % (Auto) Eos % (Auto) Baso % (Auto) Neut # (Auto) Lymph # (Auto) [place] # (Auto) Eos # (Auto) Baso # (Auto) Abs Immat Gran (auto) Sodium Potassium Chloride Carbon Dioxide BUN Creatinine Estimated Creat Clear Estimated GFR Glucose Calcium Total Bilirubin AST ALT Alkaline Phosphatase Total Protein Albumin TSH SARS-CoV-2 (PCR) Negative SARS-CoV-2 Discharge Plan Discharge Disposition: Home, Self-Care Date of Admission: 12/28/21 13:12 Primary Care Provider: Provider,Not a Local Condition: Stable Anticipated Discharge Date/Time: 12/29/21 09:41 Discharge Medications: New acetaminophen 650 mg Tablet Extended Release 1,300 mg PO BID Qty: 120 0RF aspirin [Children's Aspirin] 81 mg Tablet,Chewable 81 mg PO DAILY Qty: 100 0RF Continued furosemide 40 mg tablet 40 mg PO DAILY atorvastatin 40 mg tablet 40 mg PO .At bedtime alprazolam 0.25 mg tablet 0.125 mg PO .COMPLEX Rx Instructions: 0.125 mg orally BEFORE DIALYSIS ON MWF; Take before dialysis on Friday and Friday metoprolol tartrate 25 mg tablet 25 mg PO BID sevelamer carbonate 800 mg tablet 3,200 mg PO TIDWM Rx Instructions: 2 tablets or 1600 mg p.o. with snack p.r.n. venlafaxine 150 mg capsule,extended release 24hr 150 mg PO DAILY CONFIGURATION ANALYST-Chad Rx 1-60-300 mg-mg-mcg tablet 1 tab PO DAILY calcitriol 0.25 mcg capsule 0.25 mcg PO DAILY Discontinued cefdinir 300 mg capsule 300 mg PO .Q48 Qty: 7 0RF Hold Instructions: . Discharge Orders: Discharge Order (Routine); Ordered 12/29/21 Ordered By: Hector Elena Patient Education: Acetaminophen (By mouth), Aspirin (By mouth) Activity Level: No Restrictions Discharge Diet: Regular Follow Up Appointments: Provider,Not a Local [Primary Care Provider] - Forms: [employer] Info Instructions Discharge Comments: send copy of records to Dr Santos, [place] advertising clerk
--- NOTE | 2021-12-29 11:47 | PC.NURSE ---
Discharge Summary: Patient pleasant and cooperative. Afebrile. Denies pain. Up with SBA and cane. Denies lightheadedness or dizziness. Tolerating regular diet with no nausea. Patient discharged home at 1130 with all personal belongings including home medications. Discharge instructions including diagnosis, medications and follow up plan discussed with patient and voiced understanding.
== END 2021-12-29 11:30 | disposition home or self-care (01) ==
LOC: ED 11:57 → MEDSURG 13:13
PROVIDERS: Admitting Provider Internal Medicine; Emergency Provider Family Medicine; Visit Provider Internal Medicine
DX: N03.2 Chronic nephritic syndrome with diffuse membranous glomerulonephritis (principal); R41.89 Other symptoms and signs involving cognitive functions and awareness; Z99.2 Dependence on renal dialysis; N18.6 End stage renal disease; R26.89 Other abnormalities of gait and mobility; M62.81 Muscle weakness (generalized); R29.818 Other symptoms and signs involving the nervous system; Z86.73 Personal history of transient ischemic attack (TIA), and cerebral infarction without residual deficits; I47.1 Supraventricular tachycardia; R47.89 Other speech disturbances; Z86.79 Personal history of other diseases of the circulatory system; K59.09 Other constipation; R05.3 Chronic cough; Z20.822 Contact with and (suspected) exposure to COVID-19
CPT/HCPCS: 36415; 80053; 84443; 85025; 87635; 93306; 97161; 97165; 97530; 97535; 99283; 99284; 99285; G0378; A9270; G0379; S0169

== ENCOUNTER 2022-01-28 08:28 | Outpatient (CLI) | payer MEDICARE, OTHER, SELFPAY | END 2022-01-28 08:29 | disposition home or self-care (01) | LOC: AMB 03-14 14:38 | PROVIDERS: Visit Provider Family Medicine | DX: R41.0 Disorientation, unspecified (principal); R00.0 Tachycardia, unspecified | CPT/HCPCS: A0425; A0433 ==

== ENCOUNTER 2022-01-28 09:09 | Emergency (ER) | payer MEDICARE, OTHER, SELFPAY ==
[2022-01-28] VITALS (36 sets, daily range): BP systolic 161–213; BP diastolic 73–118; PULSE 79–121; RESP 26; TEMP 36.9; O2SAT 89–100; BMI 26.6
--- NOTE | 2022-01-28 09:19 | CRLHL7_ITS ---
For Patients: As a result of the Century Cures Act, medical imaging exams and procedure reports are released immediately into your electronic medical record. You may view this report before your referring provider. If you have questions, please contact your health care provider. INDICATION: SVT TECHNIQUE: Single view chest. Comparison chest x-ray 12/27/2021 FINDINGS: Mildly prominent cardiac silhouette. Thoracic aorta appears tortuous/ectatic. There is prominence interstitial markings this may represent pulmonary edema. There is no effusion or pneumothorax. Dictated by Katerina Hardin MD @ 01/28/2022 9:51:08 AM (Electronically Signed)
--- NOTE | 2022-01-28 09:20 | ED.GENADULT ---
HPI - General Adult General Date Seen: 01/28/22 Chief complaint: Arrhythmia/Palpitations Stated complaint: SVT Time Seen by Provider: 01/28/22 09:13 Source: patient, EMS, RN notes reviewed and old records reviewed Mode of arrival: EMS Limitations: no limitations History of Present Illness HPI narrative: Patient is an 81-year-old female brought in from dialysis with confusion an SVT that were discovered during dialysis. EMS was called and she was confused, oxygen saturations in the 80s, pulse 1 50s to 170s per report, systolic blood pressure around 119 I believe EMS said. They attempted emergent cardioversion with 50 and then 100 joules without success. They eventually were able to get a In and she converted with 6 mg IV adenosine. She is on dialysis Friday for end-stage kidney disease from glomerulonephritis. She resides at [facility]. She is known to have a history of SVT and hypertension. She was seen earlier in December and needed conversion with adenosine here in the ED for SVT. She remembers the attempts at the cardioversion but otherwise is confused to the events prior to that. She has had recent neurologic workup, was hospitalized earlier in December for possible TIAs. At this time, she has no acute complaints of pain but was complaining EN route about some sharp sided right abdominal pain. She has no recollection of feeling like her heart rate was fast. She still had 40 minutes left of her dialysis run today. At this time, she has no complaints, no pain, no chest pain, no sense of any heart irregularity, no breathing difficulties. EMS appropriately at the time and deemed her [facility], they fortunately had stabilized her in route. EMS also reports that her only blood thinner is an aspirin daily. EMS reports that since the adenosine with successful cardioversion, her neurologic status has greatly improved. She does not seem any longer confused. complaint: SVT with confusion Related Data Home Medications Medication Instructions Recorded Confirmed alprazolam 0.25 mg tablet 0.125 mg PO .COMPLEX 12/26/21 12/28/21 atorvastatin 40 mg tablet 40 mg PO .At bedtime 12/26/21 12/28/21 furosemide 40 mg tablet 40 mg PO DAILY 12/26/21 12/28/21 metoprolol tartrate 25 mg tablet 25 mg PO BID 12/26/21 12/28/21 sevelamer carbonate 800 mg tablet 3,200 mg PO TIDWM 12/26/21 12/28/21 calcitriol 0.25 mcg capsule 0.25 mcg PO DAILY 12/28/21 12/28/21 venlafaxine 150 mg 150 mg PO DAILY 12/28/21 12/28/21 capsule,extended release 24 hr vitamin B comp no.3-folic acid 1 1 tab PO DAILY 12/28/21 12/28/21 mg-vit C 60 mg-biotin 300 mcg tablet (WEB COMMUNICATIONS SPECIALIST-[facility] Rx) Previous Rx's Medication Instructions Recorded acetaminophen 650 mg 1,300 mg PO BID #120 tabs 12/29/21 tablet,extended release aspirin 81 mg chewable tablet 81 mg PO DAILY #100 tabs 12/29/21 (Children's Aspirin) metoprolol tartrate 50 mg tablet 50 mg PO BID #60 tabs 01/28/22 Allergies Allergy/AdvReac Type Severity Reaction Status Date / Time No Known Drug Allergies Allergy Verified 12/26/21 10:51 Review of Systems Status of ROS: Reports: 10 or more systems reviewed and unremarkable except as noted in History and below [facility] Medical History (Updated 01/28/22 @ 12:49 by Gabriella Story MD) 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 End stage renal disease on dialysis SVT (supraventricular tachycardia) Family History Mother CHF (congestive heart failure) Father Pancreatic cancer Social History Highest level of school completed/degree received: Bachelor's degree Smoking Status: Never smoker Do you use any of these nicotine containing products: None Second hand tobacco smoke exposure: No How often do you have a drink containing alcohol: never How often do you have six or more drinks on one occasion: Never AUDIT-C Alcohol total score: 0 Non-prescribed substance use: denies use Caffeine: No service: No Exam Const: Vital Signs, click to edit/add: Vital Signs - 24 hr 01/28/22 09:21 01/28/22 09:18 01/28/22 09:20 Temperature 98.5 F Pulse Rate 117 H 116 H Pulse Rate [Right Pulse Oximeter] 116 H Respiratory Rate 26 H Blood Pressure 198/88 H Blood Pressure [Ri ght Upper Arm] 198/88 H Pulse Oximetry 97 98 96 Oxygen Delivery Me thod Room Air 01/28/22 09:30 01/28/22 09:34 01/28/22 09:31 Temperature Pulse Rate 114 H 116 H Pulse Rate [Right Pulse Oximeter] Respiratory Rate Blood Pressure 197/85 H Blood Pressure [Ri ght Upper Arm] Pulse Oximetry 97 97 97 Oxygen Delivery Me thod 01/28/22 09:45 01/28/22 09:47 01/28/22 10:00 Temperature Pulse Rate 118 H 121 H 115 H Pulse Rate [Right Pulse Oximeter] Respiratory Rate Blood Pressure 185/91 H Blood Pressure [Ri ght Upper Arm] Pulse Oximetry 98 99 94 Oxygen Delivery Me thod 01/28/22 10:01 01/28/22 10:15 01/28/22 10:16 Temperature Pulse Rate 117 H 108 H 111 H Pulse Rate [Right Pulse Oximeter] Respiratory Rate Blood Pressure 213/91 H 169/85 H Blood Pressure [Ri ght Upper Arm] Pulse Oximetry 97 96 98 Oxygen Delivery Me thod 01/28/22 10:30 01/28/22 10:34 01/28/22 10:45 Temperature Pulse Rate 111 H 112 H 110 H Pulse Rate [Right Pulse Oximeter] Respiratory Rate Blood Pressure Blood Pressure [Ri ght Upper Arm] Pulse Oximetry 96 98 92 Oxygen Delivery Me thod 01/28/22 10:49 01/28/22 11:00 01/28/22 11:05 Temperature Pulse Rate 109 H 112 H 106 H Pulse Rate [Right Pulse Oximeter] Respiratory Rate Blood Pressure Blood Pressure [Ri ght Upper Arm] Pulse Oximetry 98 95 94 Oxygen Delivery Me thod 01/28/22 11:15 01/28/22 12:07 01/28/22 11:20 Temperature Pulse Rate 108 H 107 H Pulse Rate [Right Pulse Oximeter] Respiratory Rate Blood Pressure Blood Pressure [Ri ght Upper Arm] 176/118 H Pulse Oximetry 95 97 Oxygen Delivery Me thod 01/28/22 11:30 01/28/22 11:34 01/28/22 11:45 Temperature Pulse Rate 113 H 106 H 104 H Pulse Rate [Right Pulse Oximeter] Respiratory Rate Blood Pressure Blood Pressure [Ri ght Upper Arm] Pulse Oximetry 97 99 99 Oxygen Delivery Me thod 01/28/22 12:00 Temperature Pulse Rate 104 H Pulse Rate [Right Pulse Oximeter] Respiratory Rate Blood Pressure Blood Pressure [Ri ght Upper Arm] Pulse Oximetry 98 Oxygen Delivery Me thod Documenting provider has reviewed patient's vital signs: yes Common normals: no apparent distress, average body habitus, oriented x3, no limitations, healthy appearing and alert General appearance: cooperative, comfortable and well [facility] HENMT: Common normals: normocephalic, head/scalp atraumatic, hearing grossly normal bilaterally, external nose normal, nasal mucous membranes and turbinates normal, moist oral mucous membranes, oropharynx normal and dentition normal Head and scalp: normocephalic and atraumatic Nose: external nose normal and nasal mucous membranes and turbinates normal Eye: Common normals: PERRL, EOMs intact bilaterally, conjunctivae normal and no scleral icterus Conjunctiva: conjunctiva(e) normal Pupil: PERRL Neck & C-Spine: Common normals: full ROM, no lymphadenopathy, supple, no meningeal signs, no JVD and thyroid normal Thyroid: thyroid normal Resp: Common normals: normal respiratory effort, no retractions, no use of accessory muscles and clear to auscultation bilaterally Auscultation: clear to auscultation bilaterally Cardio: Common normals: no JVD, regular rate, regular rhythm, S1 normal heart sound, S2 normal heart sound, no gallops, no clicks, no murmurs and no rub Rate: regular rate Rhythm: regular rhythm Heart sounds: S1 normal and S2 normal GI: Common normals: Normal to inspection, nondistended, normoactive bowel sounds present, soft to palpation, non-tender, no hepatosplenomegaly, no masses and no bruits Palpation: soft and no hepatosplenomegaly Extremity: Common normals: normal to inspection, full ROM, normal capillary refill, no joint enlargement, no clubbing, cyanosis or edema, no calf tenderness and no pedal edema Neuro: Common normals: oriented x3, CN's II-XII intact bilaterally, moves all extremities, no focal motor deficits and no sensory deficits noted Sensorium/orientation: alert Meningeal signs: no meningeal signs Speech: speech normal Psych: Appearance: well ket Course Course Hospital Course: Will have her on cardiac monitoring and pulse oximetry. It would appear that she is having recurrent SVT. Will get appropriate labs. Will look back in her recent labs to ensure that a TSH has been done recently. May need to talk to Cardiology about her recurrent SVT. We will watch and see if she has any complaints of abdominal pain. I did review her recent ED visits as well as the hospitalization for the episodic confusion speech difficulties. She has had a recent CTA, recent MRI with no acute findings. Reevaluation(s) Reevaluation #1: Vipul is feeling just fine now. She is alert, understanding. We have had no further SVT. I did give her 25 mg oral metoprolol after my conversation with Cardiology. She does state that she sometimes gets hypotensive at the end of dialysis. I reviewed with her that it can be sometimes a difficult to manage, balance seen dialysis for hypotension can happen as well as trying to suppress something like SVT with the increased doses of metoprolol. We will just have to see how she does. She is going to need to get scheduled to see Cardiology and perhaps even electrophysiology at some point. Time: 12:43 Consultations Consultation #1: Spoke with physician on-call for [facility]. He agreed with increasing her metoprolol to try to suppress SVT. Did think that she should see Cardiology and perhaps even electrophysiology. Time: 11:12 Vital Signs Vital signs: Initial Vital Signs Pulse Rate 117 H 01/28/22 09:18 Pulse Oximetry 98 01/28/22 09:18 Vital Signs Pulse Rate 117 H 01/28/22 09:18 Pulse Oximetry 98 01/28/22 09:18 Temperature 98.5 F 01/28/22 09:21 Pulse Rate 104 H 01/28/22 12:00 Respiratory Rate 26 H 01/28/22 09:21 Blood Pressure 176/118 H 01/28/22 12:07 Pulse Oximetry 98 01/28/22 12:00 Oxygen Delivery Method 01/28/22 09:21 Medical Decision Making Lab Data Labs: Lab Results 01/28/22 01/28/22 01/28/22 Range/Units 09:34 09:34 09:35 WBC 4.84 (4.50-11.00) K/uL RBC 3.55 L (4.00-5.20) m/uL Hgb 11.6 L (12.0-16.0) gm/dL Hct 35.5 (33.0-51.0) % MCV 100 (80-100) fL MCH 33 (26-34) pg MCHC 33 (32-36) gm/dL RDW Coeff of Thomas 13.3 (11.5-15.5) % Plt Count 165 (140-440) K/uL Neut % (Auto) 76.1 H (42.0-72.0) % Lymph % (Auto) 10.5 L (20-44) % [place] % (Auto) 9.3 (0.0-11.0) % Eos % (Auto) 3.5 (0.0-7.0) % Baso % (Auto) 0.4 (0.0-3.0) % Neut # (Auto) 3.70 (1.7-7.0) K/uL Lymph # (Auto) 0.50 L (0.90-2.90) K/uL [place] # (Auto) 0.50 (0.00-0.90) K/UL Eos # (Auto) 0.17 (0.00-0.50) K/uL Baso # (Auto) 0.02 (0.00-0.30) K/uL Abs Immat Gran (auto) 0.01 (0.00-0.30) K/uL Sodium (135-149) mmol/L Potassium (3.6-5.1) mmol/L Chloride (96-114) mmol/L Carbon Dioxide (20-32) mmol/L BUN (7-30) mg/dL Creatinine (0.5-1.5) mg/dL Estimated Creat Clear Estimated GFR ml/min Glucose (60-115) mg/dL Calcium (8.4-10.6) mg/dL Total Bilirubin (0.1-1.5) mg/dL AST (12-35) U/L ALT (4-35) U/L Alkaline Phosphatase (40-150) U/L NT-Pro-B Natriuret Pep (0-450) PG/mL Total Protein (6.0-8.3) g/dL Albumin (3.3-5.0) g/dL SARS-CoV-2 (PCR) Negative SARS-CoV-2 (Negative) POC Troponin I 0.07 H (0.01-0.04) ng/ml 01/28/22 Range/Units 09:35 WBC (4.50-11.00) K/uL RBC (4.00-5.20) m/uL Hgb (12.0-16.0) gm/dL Hct (33.0-51.0) % MCV (80-100) fL MCH (26-34) pg MCHC (32-36) gm/dL RDW Coeff of Thomas (11.5-15.5) % Plt Count (140-440) K/uL Neut % (Auto) (42.0-72.0) % Lymph % (Auto) (20-44) % [place] % (Auto) (0.0-11.0) % Eos % (Auto) (0.0-7.0) % Baso % (Auto) (0.0-3.0) % Neut # (Auto) (1.7-7.0) K/uL Lymph # (Auto) (0.90-2.90) K/uL [place] # (Auto) (0.00-0.90) K/UL Eos # (Auto) (0.00-0.50) K/uL Baso # (Auto) (0.00-0.30) K/uL Abs Immat Gran (auto) (0.00-0.30) K/uL Sodium 136 (135-149) mmol/L Potassium 3.6 (3.6-5.1) mmol/L Chloride 98 (96-114) mmol/L Carbon Dioxide 20 (20-32) mmol/L BUN 36 H (7-30) mg/dL Creatinine 4.7 H (0.5-1.5) mg/dL Estimated Creat Clear 9.28 Estimated GFR 9 ml/min Glucose 103 (60-115) mg/dL Calcium 9.8 (8.4-10.6) mg/dL Total Bilirubin 0.5 (0.1-1.5) mg/dL AST 25 (12-35) U/L ALT 17 (4-35) U/L Alkaline Phosphatase 85 (40-150) U/L NT-Pro-B Natriuret Pep 8400 H (0-450) PG/mL Total Protein 7.8 (6.0-8.3) g/dL Albumin 4.8 (3.3-5.0) g/dL SARS-CoV-2 (PCR) (Negative) POC Troponin I (0.01-0.04) ng/ml Imaging Data Chest x-ray: Attestation: I have reviewed the pertinent imaging results. My impression: There does seem to be some pulmonary vascular congestion my preliminary read, await Radiology over-read. Radiologist's impression: Patient: VIPUL PEREYRA Facility:?[facility] Patient ID:?[id number] Site Patient ID:?[id number]. Site :?[id number] Study:?XRay Chest PORTABLE-01/28/2022 9:44:12 AM Ordering Physician:?Porsha Quiroz Final Report: INDICATION: SVT TECHNIQUE: Single view chest. Comparison chest x-ray 12/27/2021 FINDINGS: Mildly prominent cardiac silhouette. Thoracic aorta appears tortuous/ectatic. There is prominence interstitial markings this may represent pulmonary edema. There is no effusion or pneumothorax. Dictated by Katerina Hardin MD @ 01/28/2022 9:51:08 AM (Electronic Signature) ECG Data Attestation: I personally reviewed and interpreted this ECG as follows: (Sinus tachycardia, 116 beats per minute, voltage criteria for LVH. No ischemic change. QT corrected 455 milliseconds.) Critical Care Time Critical Care Time Critical Care Time: No Discharge Plan Discharge Clinical Impression: SVT (supraventricular tachycardia), End stage renal disease on dialysis Patient Disposition: Home, Self-Care Condition: Stable Instructions: Supraventricular Tachycardia (ED) Additional Instructions: Need to increase your metoprolol to 50 mg twice a day, we have given you an extra dose here to cover for the morning but you should take this increased dose starting tonight. You need to get scheduled to see Cardiology, [facility] does come to the [facility]. You can pick we would like to see Cardiology however and go through your primary care provider if you want to go elsewhere. Activity Level: Activity as Tolerated Prescriptions: New metoprolol tartrate 50 mg tablet 50 mg PO BID Qty: 60 1RF No Action furosemide 40 mg tablet 40 mg PO DAILY atorvastatin 40 mg tablet 40 mg PO .At bedtime alprazolam 0.25 mg tablet 0.125 mg PO .COMPLEX Rx Instructions: 0.125 mg orally BEFORE DIALYSIS ON MW; Take before dialysis on Friday and Friday metoprolol tartrate 25 mg tablet 25 mg PO BID sevelamer carbonate 800 mg tablet 3,200 mg PO TIDWM Rx Instructions: 2 tablets or 1600 mg p.o. with snack p.r.n. venlafaxine 150 mg capsule,extended release 24hr 150 mg PO DAILY WEB COMMUNICATIONS SPECIALIST-[facility]ad Rx 1-60-300 mg-mg-mcg tablet 1 tab PO DAILY calcitriol 0.25 mcg capsule 0.25 mcg PO DAILY acetaminophen 650 mg Tablet Extended Release 1,300 mg PO BID Qty: 120 0RF aspirin [Children's Aspirin] 81 mg Tablet,Chewable 81 mg PO DAILY Qty: 100 0RF Follow Up/Referrals: Provider,Not a Local [Primary Care Provider] - Stand Alone Forms: [employer] Info Instructions
[2022-01-28 09:54] LABS: Troponin, Point-of-Care* 0.07 ng/ml (0.01-0.04)
[2022-01-28 09:57] LABS: Basophils Absolute Auto 0.02 K/uL (0.00-0.30); Basophils Percent Auto 0.4 % (0.0-3.0); Eosinophils Absolute Auto 0.17 K/uL (0.00-0.50); Eosinophils Percent Auto 3.5 % (0.0-7.0); Hematocrit 35.5 % (33.0-51.0); Hemoglobin* 11.6 gm/dL (12.0-16.0); Immature Granulocytes Abs Auto 0.01 K/uL (0.00-0.30); Lymphocytes Percent Auto 10.5 % (20-44); Mean Corpuscular HGB Conc 33 gm/dL (32-36); Mean Corpuscular Hemoglobin 33 pg (26-34); Mean Corpuscular Volume 100 fL (80-100); Monocytes Percent Auto 9.3 % (0.0-11.0); Neutrophils Percent Auto 76.1 % (42.0-72.0); Platelet Count* 165 K/uL (140-440); RDW Coefficient of Variation % 13.3 % (11.5-15.5); Red Blood Count 3.55 m/uL (4.00-5.20); White Blood Count* 4.84 K/uL (4.50-11.00)
[2022-01-28 10:07] LABS: Slide Review Reflex No
[2022-01-28 10:09] LABS: Albumin* 4.8 g/dL (3.3-5.0); Chloride* 98 mmol/L (96-114); Potassium* 3.6 mmol/L (3.6-5.1); Sodium* 136 mmol/L (135-149)
[2022-01-28 10:12] LABS: Alkaline Phosphatase* 85 U/L (40-150); Aspartate Amino Transferase* 25 U/L (12-35); Bilirubin Total* 0.5 mg/dL (0.1-1.5); Blood Urea Nitrogen* 36 mg/dL (7-30); Carbon Dioxide* 20 mmol/L (20-32); Creatinine* 4.7 mg/dL (0.5-1.5); Est. Creatinine Clearance* 9.28; Estimated Glomerular Filt Rate 9 ml/min; Glucose* 103 mg/dL (60-115); Total Protein* 7.8 g/dL (6.0-8.3)
[2022-01-28 10:13] LABS: Alanine Aminotransferase* 17 U/L (4-35); Calcium* 9.8 mg/dL (8.4-10.6)
--- NOTE | 2022-01-28 10:13 | ED.NURSE ---
Pt continues to call distributor sales consultant light every few minutes when nurse is not at bedside. Unable to finish sentences. Asked if she could lay down in bed, while she was laying in bed in ER.
[2022-01-28 10:21] LABS: NT Pro B Type NatriureticPept* 8400 PG/mL (0-450)
[2022-01-28 10:24] LABS: SARS PCR* Negative SARS-CoV-2 (Negative)
--- NOTE | 2022-01-28 11:00 | ED.NURSE ---
assistant reading teacher sitting with pt. Pt appears more calm.
[2022-01-28] MEDS: METOPROLOL TARTRATE 25 MG TABLET PO (12:06)
--- NOTE | 2022-01-28 13:43 | ED.NURSE ---
Pt d/c'd to lobby to wait for cab. Pt requesting can to take her back to her car at Dialysis. Dr Hi aware. Called and spoke with Madelyn nurse at [facility], pt does not have full services but does do VS. Grace will contact family.
== END 2022-01-28 13:48 | disposition home or self-care (01) ==
PROVIDERS: Emergency Provider Family Medicine
DX: I47.1 Supraventricular tachycardia (principal); N18.6 End stage renal disease; Z99.2 Dependence on renal dialysis
CPT/HCPCS: 36415; 71045; 80053; 83880; 84484; 85025; 87635; 93005; 94761; 99284; A9270

== ENCOUNTER 2022-02-04 09:25 | Outpatient (CLI) | payer MEDICARE, OTHER, SELFPAY | END 2022-02-04 09:26 | disposition home or self-care (01) | LOC: AMB 03-28 15:48 | PROVIDERS: Visit Provider Family Medicine | DX: R41.82 Altered mental status, unspecified (principal) | CPT/HCPCS: A0425; A0427 ==